=== PATIENT | female | born 1960 | race Caucasian/White ===

== ENCOUNTER 2022-04-12 06:39 | Outpatient (CLI) | payer OTHER, BC, SELFPAY | END 2022-04-12 06:40 | disposition home or self-care (01) | PROVIDERS: Visit Provider Family Medicine | DX: M54.16 Radiculopathy, lumbar region (principal); M51.36 Other intervertebral disc degeneration, lumbar region | CPT/HCPCS: 62323; J0702; Q9966 ==

== ENCOUNTER 2022-09-24 07:09 | Outpatient (CLI) | payer OTHER, SELFPAY | END 2022-09-24 07:10 | disposition home or self-care (01) | PROVIDERS: Visit Provider Family Medicine | DX: M54.14 Radiculopathy, thoracic region (principal); M51.34 Other intervertebral disc degeneration, thoracic region | CPT/HCPCS: 62321; J0702; Q9966 ==